=== PATIENT | male | born 1940 | race Asian ===

== ENCOUNTER 2017-05-15 05:04 | Inpatient (IN) | payer MEDICARE, OTHER ==
[~2017-05-15] VITALS: Ht 162.6 cm; Wt 83.5 kg
--- NOTE | 2017-05-15 05:15 | NUR ---
RECEIVED PT WITH HIS FAMILY FOR SURGERY TODAY . PT ALERT AWAKE ORIENTED . DENIES PAIN DISCOMFORT NAUSEA . ALL PRE OP ADMISSION AND PRE OP CHECKLIST DONE PER INFORMATION PROVIDE BY PT .MRSA AND BLOOD ORDERED DONE. EKG DONE . WILL CONTINUE POC . ALL BELONGING WITH FAMILY EXCEPT DENTURE . WILL CONTINUE POC
[2017-05-15] MEDS ORDERED: KETOROLAC TROMETHAMINE INJ 30 MG/ML VIAL ONE (06:04)
[2017-05-15] MEDS ORDERED: ANESTHESIA TRAY IN PYXIS 1 EA TRAY MC ONE (06:05)
[2017-05-15] MEDS ORDERED: BACITRACIN 50000 UNITS/VIAL ONE (06:05)
[2017-05-15] MEDS ORDERED: BUPIVACAINE 0.5 % PF 150 MG/30 ML VIAL ONE (06:05)
[2017-05-15] MEDS ORDERED: MIDAZOLAM HCL 2 MG/2ML VIAL ONE (06:22)
[2017-05-15] MEDS ORDERED: MORPHINE SULFATE/PF 10 MG/10ML (1MG/ML) AMPUL ONE (06:22)
[2017-05-15] MEDS ORDERED: VALS320T2 PO (07:18)
[2017-05-15] MEDS ORDERED: ASPI-605 PO (07:18)
[2017-05-15] MEDS ORDERED: ALLO300T2 PO (07:18)
[2017-05-15] MEDS ORDERED: TRANEXAMIC ACID 3,000 MG in SODIUM CHLORIDE IRRIG SOLUTION 70 ML IR ONE (07:30)
--- NOTE | 2017-05-15 09:10 | NUR ---
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 Drake. IV in placed and intact with IVF infusing well. Informed Dr. Scottie Grimaldo regarding admission. Skin is intact. Patient is alert and oriented x 4, verbally responsive and able to make needs known. On 02 @ 2lpm via NC saturation of 98%. No complaint of pain pain or discomfort noted, nor chest pain. On tele monitor SR heart rate of 81. Kept patient clean and comfortable in bed, call light with in patient reach, will continue to monitor accordingly.
[2017-05-15] MEDS ORDERED: NALOXONE HCL 0.4 MG/ML AMPUL IV PRN ×2 (09:30→11:30)
[2017-05-15] MEDS ORDERED: ONDANSETRON HCL/PF 4 MG/2 ML VIAL IV PRN ×2 (09:30→11:30)
[2017-05-15] MEDS ORDERED: TYLENOL 650 MG TABLET PO PRN (09:30)
[2017-05-15] MEDS ORDERED: SENOKOT 8.6 MG TABLET PO PRN (09:30)
[2017-05-15] MEDS ORDERED: DULCOLAX 10 MG/SUPP.RECT RC PRN (09:30)
[2017-05-15] MEDS ORDERED: IV D5/0.45 NACL 1,000 ML IV PRN (09:30)
[2017-05-15] MEDS ORDERED: HYDROCODONE/APAP 5/325MG 1 EACH TABLET PO PRN ×2 (09:30→11:30)
[2017-05-15] MEDS ORDERED: diphenhydrAMINE HCL 50 MG/ML VIAL IM PRN (09:30)
[2017-05-15] MEDS ORDERED: COLACE 250 MG CAPSULE PO PRN (09:30)
[2017-05-15] MEDS ORDERED: ZOFRAN 4mg/2ML IV PRN (09:30)
[2017-05-15 09:48] VITALS: BP 134/77
[2017-05-15] MEDS ORDERED: oxyCODONE IR immediate release 5 MG CAPSULE PO PRN (11:30)
[2017-05-15] MEDS ORDERED: MAG HYDROX/AL HYDROX/SIMETH 30 ML UDC PO PRN (11:30)
[2017-05-15] MEDS ORDERED: HYDROCODONE/APAP 10/325MG 1 EA TABLET PO PRN (11:30)
[2017-05-15] MEDS ORDERED: diphenhydrAMINE HCL 25 MG CAPSULE PO PRN (11:30)
[2017-05-15] MEDS ORDERED: CLONIDINE HCL 0.1 MG TABLET PO PRN (11:30)
[2017-05-15] MEDS ORDERED: MAGNESIUM HYDROXIDE 30 ML UDC PO PRN (11:30)
[2017-05-15] MEDS ORDERED: PROMETHAZINE HCL 25 MG/ML AMPUL IM PRN (11:30)
[2017-05-15] MEDS ORDERED: MENTHOL/CETYLPYRD (CEPACOL) 1 LOZ LOZENGE MM PRN (11:30)
[2017-05-15] MEDS ORDERED: BISACODYL SUPP (10 MG) 10 MG/SUPP.RECT SUPP.RECT RC PRN (11:30)
[2017-05-15] MEDS ORDERED: KETOROLAC TROMETHAMINE INJ 30 MG/ML VIAL IV PRN (15:00)
[2017-05-15] MEDS ORDERED: POTASSIUM CHLORIDE 20 MEQ TAB.PRT.SR PO ONE (15:30)
[2017-05-15] MEDS ORDERED: FUROSEMIDE 20 MG/2 ML VIAL IV ONE (15:30)
[2017-05-15] MEDS ORDERED: ALBUTEROL FS 2.5 MG/3 ML VIAL.NEB NEB ONE (15:30)
[2017-05-15] MEDS ORDERED: IPRATROPIUM NEB FS 0.5 MG/2.5 ML AMPUL.NEB NEB ONE (15:30)
[2017-05-15] MEDS: ANCEF 1 G in IV D5W 50 ML IV SCH ×2 (15:55→23:21)
[2017-05-15 16:00] VITALS: BP 155/87
[2017-05-15] MEDS: DOCUSATE SODIUM 100 MG CAPSULE PO SCH (16:55)
[2017-05-15] MEDS: AMLODIPINE BESYLATE 2.5 MG TABLET PO SCH (16:55)
[2017-05-15] MEDS: VALSARTAN 80 MG TABLET PO SCH (16:55)
--- NOTE | 2017-05-15 19:17 | NUR ---
ms rn closing notes Alll needs provided, attended, and anticipated. tejeda output of 2500ml, no complaint of pain or discomfort noted. Endorsed to next shift RN to continue care.
[2017-05-15 20:00] VITALS: BP 124/65
--- NOTE | 2017-05-15 20:00 | NUR ---
Patient recieved alert and orientated smiling. at the bedside. Patient answers questions approip, Pt stated he just had the CPM removed not to put it on again now. Noted ice on the right knee. Right foot PPP and strong, capillary refill less 3 secomds , and movement present in the right and left foot
[2017-05-15 20:37] VITALS: BP 124/68
[2017-05-15] MEDS ORDERED: AMBIEN 5 MG TABLET PO PRN (22:00)
--- NOTE | 2017-05-15 22:15 | NUR ---
Dr Sorenson here spoke to patient regarding pain control and giving him home instructions. MD Sorenson instructed me to give oxycodone 5mg tablet now, d/t what they gave in surgery is going to wear off by midnight
[2017-05-15] MEDS: PANTOPRAZOLE 40 MG TABLET.DR PO SCH (22:16)
[2017-05-15] MEDS: TAMSULOSIN 0.4 MG CAP.SR.24H PO SCH (22:16)
[2017-05-15] MEDS: oxyCODONE IR immediate release 5 MG CAPSULE PO PRN (22:34)
[2017-05-16 00:14] VITALS: BP 109/68
[2017-05-16 04:38] VITALS: BP 106/57
[2017-05-16 05:48] VITALS: BP 106/57
--- NOTE | 2017-05-16 05:49 | NUR ---
Patient had a sleepful night. stayed at the bedside. MD Calabrese came to see the patient and oxcodone was give and was effective, made the patient sllep well, the patient stated he slept like a baby. Left leg dressing CDI, offered to place on the CPM and the patient stated he would do it later. Ice to the knee thru the night. Moving his toes and wiggling his feet and the PPP and strong right/Left foot. He continues to deniy pain. Will again offer PO medication for pain and discomfort.
[2017-05-16] MEDS: oxyCODONE IR immediate release 5 MG CAPSULE PO PRN ×2 (06:33→09:39)
--- NOTE | 2017-05-16 07:20 | NUR ---
MS RN Initial notes Upon morning rounds, received patient laying comfortably in bed. Alert and verbally responsive. Respirations are even and unlabored, not in any acute distress noted. Dressing to left leg intact with ice. patient c/o pain 3/10 with pain medication administered prior to shift. Patient states he is ready to ambulate. Will continue to monitor the patient throughout shift.
[2017-05-16 07:39] LABS: BASOPHILS % (AUTO) 0.2 % (0.0-2.0); EOSINOPHILS # (AUTO) 0.2 /CMM (0.0-0.7); HEMATOCRIT 41 % (39-51); HEMOGLOBIN 13.4 g/dL (13.5-17.5); LYMPHOCYTES # (AUTO) 0.9 /CMM (0.8-4.8); LYMPHOCYTES % (AUTO) 4.6 % (20.0-44.0); MEAN CORPUSCULAR HEMOGLOBIN 33 PG (26.0-33.0); MEAN CORPUSCULAR HGB CONC 33 g/dl (31.0-36.0); MEAN CORPUSCULAR VOLUME 98 fL (80-96); MONOCYTES # (AUTO) 1.4 /CMM (0.1-1.30); MONOCYTES % (AUTO) 7.5 % (2.0-12.0); NEUTROPHILS # (AUTO) 16.7 /CMM (1.8-8.9); NEUTROPHILS % (AUTO) 86.7 % (43.0-81.0); PLATELET COUNT (AUTO) 186 /CMM (150-450); RDW COEFFICIENT OF VARIATION 14.3 (11.5-15.0); RED BLOOD CELL COUNT(AUTO) 4.12 MIL/uL (4.5-6.0); WHITE BLOOD COUNT (AUTO) 19.3 K/uL (4.3-11.0)
[2017-05-16 07:50] LABS: CALCIUM, SERUM 8.6 mg/dL (8.5-10.1); CARBON DIOXIDE 28 mmol/L (21-32); CHLORIDE 103 mmol/L (98-107); CREATININE 1.3 mg/dL (0.6-1.3); GLUCOSE 124 mg/dL (74-106); MAGNESIUM 1.9 mg/dL (1.8-2.4); PHOSPHORUS 3.9 mg/dL (2.5-4.9); POTASSIUM 4.1 mmol/L (3.5-5.1); SODIUM SERUM 137 mmol/L (136-145); UREA NITROGEN, BLOOD 23 mg/dL (7-18)
[2017-05-16 08:00] VITALS: BP_SYST 113; BP_SYST 119; BP_DIAS 59; BP_DIAS 62
[2017-05-16] MEDS: ASPIRIN 325 MG TABLET PO SCH ×3 (09:00→16:23)
[2017-05-16] MEDS: DOCUSATE SODIUM 100 MG CAPSULE PO SCH ×3 (09:00→16:23)
[2017-05-16] MEDS ORDERED: MULTIVITAMIN/LUTEIN/MINERALS 1 TAB PO SCH (09:00)
--- NOTE | 2017-05-16 09:00 | NUR ---
ms rn notes Patient refused all his morning medications, explained the risk and benefits x 3 and still refused. Informed MD and made aware.
[2017-05-16] MEDS: AMLODIPINE BESYLATE 2.5 MG TABLET PO SCH ×2 (09:21→16:23)
[2017-05-16] MEDS: VALSARTAN 80 MG TABLET PO SCH ×2 (09:21→16:24)
[2017-05-16 09:50] LABS: LYMPHOCYTES % (MANUAL) 14 % (16-48); MONOCYTES % (MANUAL) 4 % (0-11.0); NEUTROPHILS % (MANUAL) 82 (42-76)
[2017-05-16] MEDS: ASCORBIC ACID 500 MG TABLET PO SCH (10:42)
[2017-05-16] MEDS: CHOLECALCIFEROL 1,000 UNIT TABLET (VIT D3) PO SCH (10:42)
[2017-05-16] MEDS: MULTIVITAMINS,THERAGRAN 1 UDTAB TABLET PO SCH (10:42)
[2017-05-16] MEDS ORDERED: ALBUTEROL FS 2.5 MG/3 ML VIAL.NEB NEB PRN (11:00)
[2017-05-16] MEDS ORDERED: IPRATROPIUM NEB FS 0.5 MG/2.5 ML AMPUL.NEB NEB PRN (11:00)
[2017-05-16 16:00] VITALS: BP 106/66
[2017-05-16] MEDS ORDERED: AMLODIPINE BESYLATE 2.5 MG TABLET PO SCH (17:00)
--- NOTE | 2017-05-16 18:27 | NUR ---
Patient lives at home with family. Prior to admission, patient was ambulatory and independent with adl's. Has good family support. POD#1 s/p Left TKA. Current plan is home with homehealth vs ARU. Patient not accepted at [facility], faxed referral to [facility]. Addendum: 05/16/17 at 1827 by RAMA PRUITT RN Amended: Links added.
--- NOTE | 2017-05-16 19:20 | NUR ---
MS RN closing notes All needs met and rendered. Kept patient clean and dry. Call light within reach. Endorsed to next shift RN to continue care.
--- NOTE | 2017-05-16 19:30 | NUR ---
MS RN OPENING NOTES: PATIENT IN BED, AOX4, ON ROOM AIR, BREATHING EVEN AND UNLABORED. BREATH SOUNDS CLEAR BILATERALLY. APPEARS CALM AND IN NO DISTRESS, STATES PAIN OVER LEFT KNEE IS SCALED AT 3/10. NOTED LEFT LEG WITH CLEAN AND INTACT DRESSING, COVERED WITH RAVINDER BANDAGE. PIV OVER LFA G 20 INTACT AND PATENT TO FLUSH. PROVIDED FOR COMFORT AND SAFETY. BED IN LOWEST AND LOCKED POSITION, SIDERAILS UP X3. AT BEDSIDE. WILL CONT TO MONITOR.
[2017-05-16 20:00] VITALS: BP_SYST 124; BP_SYST 127; BP_DIAS 69
--- NOTE | 2017-05-16 21:30 | NUR ---
RN NOTES: SPOKE TO DR PELAYO RE PATIENT'S PAIN, INFORMED MD THAT HE HAS RECENTLY SCLAED HIS PAIN AT 08/19, AND THAT LAST PAIN MED WAS GIVEN AT 0940, AND THAT AFTER THAT, PT DID NOT ASK FOR MORE PAIN MEDS. MD ORDERED TO DC ORDERS OF NORCO 5-325 MG PO AND NORCO 10-325 MG PO FOR NOW. ALSO INFORMED PATIENT THAT HE WAS NOT ACCEPTED AT [facility], BUT WILL FF UP WITH [facility] IF GOING TO HOME WITH OR [facility].
[2017-05-16] MEDS: PANTOPRAZOLE 40 MG TABLET.DR PO SCH (21:44)
[2017-05-16] MEDS: TAMSULOSIN 0.4 MG CAP.SR.24H PO SCH (21:44)
--- NOTE | 2017-05-16 23:00 | NUR ---
RN NOTES: NOTED REDDISH TINGED URINE, NO BLOOD CLOTS, WHEN PATIENT USED URINAL. PER PATIENT, IT HAS BEEN THAT COLOR SINCE THE PAREDES CATHETER WAS REMOVED TODAY. NO DYSURIA REPORTED AT THIS TIME. ENCOURAGED INCREASED ORAL FLUID INTAKE.
--- NOTE | 2017-05-16 23:13 | NUR ---
RN NOTES: DR PELAYO AT BEDSIDE TO SEE PATIENT. ALSO MADE AWARE OF REDDISH TINGED URINE. RECOMMENDED INCREASING ORAL FLUID INTAKE.
--- NOTE | 2017-05-17 01:37 | NUR ---
RN NOTES: DR RUBIO IN UNIT, INFORMED RE PATIENT'S REDDISH TINGED URINE, NO BLOOD CLOTS, NO DYSURIA. MD RECOMMENDED TO INCREASE OFI, KEEP MONITORING FOR WORSENING HEMATURIA.
--- NOTE | 2017-05-17 06:49 | NUR ---
MS RN CLOSING NOTES: PATIENT IN BED, AOX4, ON ROOM AIR, BREATHING EVEN AND UNLABORED, APPEARS CALM AND IN NO DISTRESS. LEFT LEG WITH CLEAN AND INTACT DRESSING FOR DRSG CHANGE BY ORTHO THIS AM. PROVIDED FOR COMFORT AND SAFETY. BED IN LOWEST AND LOCKED POSITION, SIDERAILS UPX2, CALL LIGHT WITHIN REACH. AT BEDSIDE. WILL ENDORSE TO AM RN FOR MELVIN.
[2017-05-17 08:00] VITALS: BP 132/69
[2017-05-17 08:58] LABS: EOSINOPHILS # (AUTO) 0.2 /CMM (0.0-0.7); HEMATOCRIT 39 % (39-51); LYMPHOCYTES # (AUTO) 0.8 /CMM (0.8-4.8); LYMPHOCYTES % (AUTO) 4.6 % (20.0-44.0); MEAN CORPUSCULAR HEMOGLOBIN 33 PG (26.0-33.0); MEAN CORPUSCULAR HGB CONC 33 g/dl (31.0-36.0); MEAN CORPUSCULAR VOLUME 99 fL (80-96); MONOCYTES # (AUTO) 1.5 /CMM (0.1-1.30); MONOCYTES % (AUTO) 8.8 % (2.0-12.0); NEUTROPHILS # (AUTO) 14.6 /CMM (1.8-8.9); NEUTROPHILS % (AUTO) 85.6 % (43.0-81.0); PLATELET COUNT (AUTO) 168 /CMM (150-450); RDW COEFFICIENT OF VARIATION 14.4 (11.5-15.0); RED BLOOD CELL COUNT(AUTO) 3.99 MIL/uL (4.5-6.0)
[2017-05-17 09:11] LABS: CALCIUM, SERUM 8.9 mg/dL (8.5-10.1); CARBON DIOXIDE 28 mmol/L (21-32); CHLORIDE 102 mmol/L (98-107); CREATININE 1.2 mg/dL (0.6-1.3); GLUCOSE 125 mg/dL (74-106); POTASSIUM 3.9 mmol/L (3.5-5.1); SODIUM SERUM 137 mmol/L (136-145); UREA NITROGEN, BLOOD 22 mg/dL (7-18)
[2017-05-17] MEDS: MULTIVITAMINS,THERAGRAN 1 UDTAB TABLET PO SCH (09:40)
[2017-05-17] MEDS: ASCORBIC ACID 500 MG TABLET PO SCH (09:40)
[2017-05-17] MEDS: CHOLECALCIFEROL 1,000 UNIT TABLET (VIT D3) PO SCH (09:40)
[2017-05-17] MEDS: ASPIRIN 325 MG TABLET PO SCH ×2 (09:40→16:32)
[2017-05-17] MEDS: DOCUSATE SODIUM 100 MG CAPSULE PO SCH ×2 (09:41→16:27)
[2017-05-17 16:30] VITALS: BP 144/88
[2017-05-17] MEDS: AMLODIPINE BESYLATE 2.5 MG TABLET PO SCH (16:32)
[2017-05-17] MEDS: VALSARTAN 80 MG TABLET PO SCH (16:32)
--- NOTE | 2017-05-17 19:30 | NUR ---
RN NOTES RECEIVED PT AWAKE , SITTING ON THE COMMODE, DRESSING ON LEFT KNEE DRY AND INTACT, AT BEDSIDE, DENIES PAIN, NO SOB, CALL LIGHT WITHIN REACH, SIDERAILS UPX2, CONTINUE TO MONITOR
--- NOTE | 2017-05-17 19:46 | NUR ---
RN NOTES COMPLAINED OF CONSTIPATION- MOM 30ML PO GIVEN ORDERED
[2017-05-17 20:00] VITALS: BP 138/79
[2017-05-17] MEDS: TAMSULOSIN 0.4 MG CAP.SR.24H PO SCH (21:31)
[2017-05-17] MEDS: PANTOPRAZOLE 40 MG TABLET.DR PO SCH (21:31)
--- NOTE | 2017-05-18 06:57 | NUR ---
RN NOTES AWAKE, MORNING CARE RENDERED, AT BEDSIDE, DENIES PAIN, NO SOB, CALL LIGHT WITHIN REACH, SIDERAILS UPX2 PT. NEEDS ATTENDED
[2017-05-18 08:00] VITALS: BP 114/63
--- NOTE | 2017-05-18 08:00 | NUR ---
MS RN AM NOTES PATIENT IN BED, AOX4, ON ROOM AIR, BREATHING EVEN AND UNLABORED. BREATH SOUNDS CLEAR BILATERALLY. APPEARS CALM AND IN NO DISTRESS, STATES PAIN OVER LEFT KNEE IS SCALED AT 3/10. NOTED LEFT LEG WITH CLEAN AND INTACT DRESSING, COVERED WITH RAVINDER BANDAGE. PIV OVER LFA G 20 INTACT AND PATENT TO FLUSH. PROVIDED FOR COMFORT AND SAFETY. BED IN LOWEST AND LOCKED POSITION, SIDERAILS UP X3. AT BEDSIDE. WILL CONT TO MONITOR.
[2017-05-18 08:29] LABS: CALCIUM, SERUM 8.9 mg/dL (8.5-10.1); CARBON DIOXIDE 28 mmol/L (21-32); CHLORIDE 100 mmol/L (98-107); CREATININE 1.2 mg/dL (0.6-1.3); GLUCOSE 138 mg/dL (74-106); MAGNESIUM 2.3 mg/dL (1.8-2.4); PHOSPHORUS 3.3 mg/dL (2.5-4.9); SODIUM SERUM 135 mmol/L (136-145); UREA NITROGEN, BLOOD 23 mg/dL (7-18)
[2017-05-18 08:41] LABS: EOSINOPHILS # (AUTO) 0.1 /CMM (0.0-0.7); EOSINOPHILS % (AUTO) 0.9 % (0.0-6.0); HEMATOCRIT 38 % (39-51); HEMOGLOBIN 12.6 g/dL (13.5-17.5); LYMPHOCYTES # (AUTO) 1.5 /CMM (0.8-4.8); LYMPHOCYTES % (AUTO) 10.4 % (20.0-44.0); MEAN CORPUSCULAR HEMOGLOBIN 32 PG (26.0-33.0); MEAN CORPUSCULAR HGB CONC 33 g/dl (31.0-36.0); MEAN CORPUSCULAR VOLUME 98 fL (80-96); MONOCYTES # (AUTO) 1.5 /CMM (0.1-1.30); NEUTROPHILS # (AUTO) 11.7 /CMM (1.8-8.9); NEUTROPHILS % (AUTO) 78.7 % (43.0-81.0); PLATELET COUNT (AUTO) 190 /CMM (150-450); RED BLOOD CELL COUNT(AUTO) 3.91 MIL/uL (4.5-6.0); WHITE BLOOD COUNT (AUTO) 14.9 K/uL (4.3-11.0)
[2017-05-18] MEDS: CHOLECALCIFEROL 1,000 UNIT TABLET (VIT D3) PO SCH (09:16)
[2017-05-18] MEDS: MULTIVITAMINS,THERAGRAN 1 UDTAB TABLET PO SCH (09:16)
[2017-05-18] MEDS: DOCUSATE SODIUM 100 MG CAPSULE PO SCH ×2 (09:16→17:18)
[2017-05-18] MEDS: ASCORBIC ACID 500 MG TABLET PO SCH (09:16)
[2017-05-18] MEDS: ASPIRIN 325 MG TABLET PO SCH ×2 (09:16→17:18)
[2017-05-18 16:00] VITALS: BP 110/62
[2017-05-18] MEDS: VALSARTAN 80 MG TABLET PO SCH (17:21)
[2017-05-18] MEDS: AMLODIPINE BESYLATE 2.5 MG TABLET PO SCH (17:21)
--- NOTE | 2017-05-18 18:18 | NUR ---
MS RN CLOSING NOTES PATIENT IN BED COMFORTABLY, AOX4, ON ROOM AIR, BREATHING REGULAR, EVEN AND UNLABORED. NO SOB NOTED, NO SIGN OF DISTRESS NOTED. LEFT LEG WITH CLEAN AND INTACT DRESSING , COVERED WITH RAVINDER BANDAGE NOTED. IV ACCES LFA G 20 INTACT AND PATENT TO FLUSH. KEPT CLEAN AND DRY.. BED IN LOWEST AND LOCKED POSITION, SIDERAILS UP X2. DUE MEDICATION GIVEN, NO ASE NOTED. AT BEDSIDE. WILL ENDORSE TO INCOMING SHIFT FOR CONTINUES MONITORING.
--- NOTE | 2017-05-18 19:30 | NUR ---
RN NOTES RECEIVED PT, AWAKE ON BED, A/OX4, AT BEDSIDE, DRESSING ON THE LEFT KNEE DRY AND INTACT, DENIES PAIN, NO SOB, CALL LIGHT WITHIN REACH, SIDERAILS UPX2 PT. CONTINUE TO MONITOR
[2017-05-18 20:00] VITALS: BP 110/56
[2017-05-18 20:19] VITALS: BP 110/56
[2017-05-18] MEDS: PANTOPRAZOLE 40 MG TABLET.DR PO SCH (21:34)
[2017-05-18] MEDS: TAMSULOSIN 0.4 MG CAP.SR.24H PO SCH (21:38)
--- NOTE | 2017-05-19 06:33 | NUR ---
RN NOTES AWAKE, DENIES PAIN, NO SOB, DRESSING ON THE LEFT KNEE DRY AND INTACT, MORNING CARE RENDERED, PT. NEEDS ATTENDED
[2017-05-19 06:45] LABS: BASOPHILS % (AUTO) 0.1 % (0.0-2.0); EOSINOPHILS # (AUTO) 0.2 /CMM (0.0-0.7); HEMATOCRIT 36 % (39-51); HEMOGLOBIN 11.9 g/dL (13.5-17.5); LYMPHOCYTES # (AUTO) 1.2 /CMM (0.8-4.8); LYMPHOCYTES % (AUTO) 10.2 % (20.0-44.0); MEAN CORPUSCULAR HEMOGLOBIN 33 PG (26.0-33.0); MEAN CORPUSCULAR HGB CONC 33 g/dl (31.0-36.0); MEAN CORPUSCULAR VOLUME 99 fL (80-96); MONOCYTES # (AUTO) 1.5 /CMM (0.1-1.30); MONOCYTES % (AUTO) 12.5 % (2.0-12.0); NEUTROPHILS # (AUTO) 8.9 /CMM (1.8-8.9); NEUTROPHILS % (AUTO) 75.2 % (43.0-81.0); PLATELET COUNT (AUTO) 207 /CMM (150-450); RDW COEFFICIENT OF VARIATION 14.7 (11.5-15.0); RED BLOOD CELL COUNT(AUTO) 3.62 MIL/uL (4.5-6.0); WHITE BLOOD COUNT (AUTO) 11.8 K/uL (4.3-11.0)
--- NOTE | 2017-05-19 07:30 | NUR ---
RN NOTES RECEIVED PATIENT IN BED ALERT, AWAKE, ORIENTED X3 WITH BREATHING NORMAL, EVEN AND UNLABORED. NO SOB NOTED. NO ACUTE DISTRESS NOTED. ON ROOM AIR, SATURATING WELL. IV LFA IS PATENT AND INTACT, NO INFILTRATION NOTED BOWEL SOUND PRESENT. PULSES PRESENT. SAFETY MEASURE OBSERVED. ALL NEEDS ATTENDED. CALL LIGHT WITH IN REACH. WILL CONT TO MONITOR.
[2017-05-19 08:00] VITALS: BP 113/70
[2017-05-19] MEDS: ASPIRIN 325 MG TABLET PO SCH (09:51)
[2017-05-19] MEDS: MULTIVITAMINS,THERAGRAN 1 UDTAB TABLET PO SCH (09:51)
[2017-05-19] MEDS: DOCUSATE SODIUM 100 MG CAPSULE PO SCH (09:51)
[2017-05-19] MEDS: ASCORBIC ACID 500 MG TABLET PO SCH (09:51)
[2017-05-19] MEDS ORDERED: IPRA0.2S9 NEB (11:27)
[2017-05-19] MEDS ORDERED: ASPI325T2 PO (11:27)
[2017-05-19] MEDS ORDERED: AMLO2.5T PO (11:27)
[2017-05-19] MEDS ORDERED: CLON0.1T14 PO (11:27)
[2017-05-19] MEDS ORDERED: DOCU-25 PO (11:27)
[2017-05-19] MEDS ORDERED: TAMS-12 PO (11:27)
[2017-05-19] MEDS ORDERED: ALBUT2 NEB (11:27)
[2017-05-19] MEDS ORDERED: CHOL100044 PO (11:27)
[2017-05-19] MEDS: CHOLECALCIFEROL 1,000 UNIT TABLET (VIT D3) PO SCH (12:41)
--- NOTE | 2017-05-19 13:47 | NUR ---
RN NOTES PATIENT DISCHARGED IN STABLE CONDITION WITH BREATHING NORMAL, EVEN AND UNLABORED. NO SOB NOTED. NO ACUTE DISTRESS NOTED. DISCHARGE INSTRUCTION GIVEN WITH FEEDBACK. UNDERSTOOD WELL. REPORT CALLED AND GIVEN TO ADRIAN ADRIAN. DISCHARGE INSTRUCTION GIVEN. PATIENT LEFT VIA AMBULANCE IN STABLE CONDITION. FAMILY AT BEDSIDE.
== END 2017-05-19 14:00 | DRG 469 ==
LOC: DS 05:04 → MED 10:58 → TELE 20:08 → MED 05-16 09:21
PROVIDERS: ADMIT Specialist; ATTEND Specialist
PROC: 0SRD0J9 Replacement of Left Knee Joint with Synthetic Substitute, Cemented, Open Approach (ICD-10-PCS; principal; 2017-05-15 06:30)
DX: M17.12 Unilateral primary osteoarthritis, left knee (principal); I50.33 Acute on chronic diastolic (congestive) heart failure; I25.10 Atherosclerotic heart disease of native coronary artery without angina pectoris; I11.0 Hypertensive heart disease with heart failure; K21.9 Gastro-esophageal reflux disease without esophagitis; E66.9 Obesity, unspecified; J44.9 Chronic obstructive pulmonary disease, unspecified; M10.9 Gout, unspecified; Z87.891 Personal history of nicotine dependence; Z68.31 Body mass index [BMI] 31.0-31.9, adult
CPT/HCPCS: 36415; 71010-TC; 80048-TC; 83735-TC; 84100-TC; 85025-TC; 86850-TC; 86921-TC; 87040-TC; 87081-TC; 88305-TC; 88311-TC; 97110-TC; 97112-TC; 97116-TC; 97530-TC; 97760-TC; A4217; A6402; C1713; J0690; J1885; J1940; J2250; J2274; J2310; J2405; J3490; J7060; Z7610